=== PATIENT | female | born 1985 | race Caucasian/White ===

== ENCOUNTER 2019-09-15 23:24 | Emergency (ER) | payer OTHER ==
--- NOTE | 2019-09-16 00:04 | EDM.PDOC ---
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 Denies: Discharge, Dysuria Skin: Reports: No Symptoms Neurological: Reports: No Symptoms ED EXAM, RENAL/ - Physical Exam Exam: See Below Exam Limited By: No Limitations General Appearance: Alert, Moderate Distress, Obese Throat/Mouth: Normal Inspection Head: Atraumatic Neck: Normal Inspection Respiratory/Chest: No Respiratory Distress, Lungs Clear GI/Abdominal: Tender. No: Mass Neurological: Alert, Oriented Course - Vital Signs Last Recorded V/S: Last Vital Signs Temp 36.6 C 09/15/19 23:45 Pulse 94 09/15/19 23:45 Resp 18 09/15/19 23:45 BP 137/95 H 09/15/19 23:45 Pulse Ox 99 09/15/19 23:45 - Orders/Labs/Meds Labs: Laboratory Tests 09/16/19 09/16/19 Range/Units 00:00 00:00 Urine Color Yellow (YELLOW) Urine Appearance Clear (CLEAR) Urine pH 6.0 (5.0-8.0) Ur Specific [place] >= 1.030 (1.008-1.030) Urine Protein Trace H (NEGATIVE) mg/dL Urine Glucose (UA) Negative (NEGATIVE) mg/dL Urine Ketones Negative (NEGATIVE) mg/dL Urine Occult Blood Trace-intact H (NEGATIVE) Urine Nitrite Negative (NEGATIVE) Urine Bilirubin Negative (NEGATIVE) Urine Urobilinogen 0.2 (0.2-1.0) EU/dL Ur Leukocyte Esterase Negative (NEGATIVE) Urine RBC 0-5 (0-5) Urine WBC 0-5 (0-5) Ur Epithelial Cells Few Amorphous Sediment Not seen Urine Bacteria Moderate Urine Mucus Many Urine HCG, Qual Negative Meds: Medications Discontinued Medications Generic Name Dose Route Start Last Admin Trade Name Freq PRN Reason Stop Dose Admin Ondansetron HCl 4 mg 09/16/19 00:20 Zofran Odt PO 09/16/19 00:21 ONETIME ONE Departure - Departure Time of Disposition: 00:30 Disposition: Home, Self-Care 01 Clinical Impression: Urinary tract infection - Discharge Information Instructions: Urinary Tract Infection, Adult Referrals: PCP,None [Primary Care Provider] - Forms: ED Department Discharge Additional Instructions: Fill prescriptions for Septra and Pyridium in the morning. Drink 2 or 3 extra glasses of water per day while taking Septra. After the antibiotic is completed , consider having your urine rechecked by your phsician to make sure the infection is cleared Sepsis Event Note - Evaluation Sepsis Screening Result: No Definite Risk - Focused Exam Vital Signs: Vital Signs Temp Pulse Resp BP Pulse Ox 09/15/19 23:45 36.6 C 94 18 137/95 H 99 09/15/19 23:44 36.6 C 94 18 137/95 H 99 Date Exam was Performed: 09/16/19 Time Exam was Performed: 00:23
[2019-09-16] MEDS ORDERED: Ondansetron 4 MG Tab.DIS PO ONE (00:20)
[2019-09-16] MEDS ORDERED: Phenazopyridine 95 MG Tab PO ONE (00:28)
[2019-09-16] MEDS ORDERED: Sulfamethoxazole/Trimethoprim 800-160 MG Tab PO ONE (00:28)
== END 2019-09-16 00:41 | disposition home or self-care (01) ==
LOC: JP.ED 23:24
DX: N39.0 Urinary tract infection, site not specified (principal)
CPT/HCPCS: 81001; 81025; 99284; A9270

== ENCOUNTER 2021-12-07 04:54 | Emergency (ER) | payer OTHER ==
[2021-12-07 05:49] LABS: ESTIMATED GFR 86 mL/min (>60)
== END 2021-12-07 07:01 | disposition home or self-care (01) ==
LOC: JP.ED 04:54
DX: O02.81 Inappropriate change in quantitative human chorionic gonadotropin (hCG) in early pregnancy (principal); Z3A.01 Less than 8 weeks gestation of pregnancy
CPT/HCPCS: 36415; 76815; 80053; 81001; 84702; 85025; 87086; 99284

== ENCOUNTER 2022-08-30 00:01 | Emergency (ER) | payer OTHER | END 2022-08-30 00:20 | disposition still patient (30) | LOC: JP.ED 00:01 | DX: O99.891 Other specified diseases and conditions complicating pregnancy (principal); R51.9 Headache, unspecified; Z3A.31 31 weeks gestation of pregnancy | CPT/HCPCS: 36415; 99283; 99284 ==

== ENCOUNTER 2024-06-18 13:01 | Emergency (ER) | payer OTHER ==
[2024-06-18] MEDS: Ondansetron 4 MG Tab.DIS PO ONE (14:22)
[2024-06-18] MEDS: Morphine 2 MG/ML SYRINGE IM ONE (15:03)
== END 2024-06-18 15:38 | disposition home or self-care (01) ==
LOC: JP.ED 13:01
DX: S06.0X0A Concussion without loss of consciousness, initial encounter (principal); S16.1XXA Strain of muscle, fascia and tendon at neck level, initial encounter; I10 Essential (primary) hypertension; Z79.899 Other long term (current) drug therapy; W10.9XXA Fall (on) (from) unspecified stairs and steps, initial encounter
CPT/HCPCS: 96372; 99283; J2270; Q0162